=== PATIENT | male | born 1980 | race Caucasian/White ===

== ENCOUNTER 2016-12-08 14:46 | Emergency (ER) | payer BC ==
[~2016-12-08] VITALS: Ht 195.6 cm; Wt 106.6 kg
--- NOTE | ~2016-12-08 | CR243 ---
[facility] A Service of [facility] & [facility] RADIOLOGY TEXT RESULTS PATIENT: ARCHIE LOMELI JR LOCATION: [facility] : [birth year] UNIT #: [id number] AGE: [address]: Betty Phillips APRN SEX: M ORDER DR: [id number] [facility] [address] [place] [place], [place] [address] [id number] E MR#: [id number] Acc #: [id number] NAME: ARCHIE LOMELI JR : 1980 SEX: M STUDY DATE/TIME: 12/08/2016 15:33 UNIT: [facility] ROOM: STUDY DESCRIPTION: CR Thoracic Spine 3 Views Attending Physician: Betty Phillips A.P.R.N. Ordering Physician: Claudy Washington M.D. Primary Care Physician: Primary Care Physician No MEDICAL IMAGING REPORT This report is preliminary unless electronic signature is present EXAM Thoracic series 12/08/2016 INDICATION 36-year-old male with a history of trauma. Upper back pain on the right side today. Injury occurred after lifting a box. TECHNIQUE Three views of the thoracic spine. COMPARISON None. FINDINGS No acute fracture or malalignment. Mild degenerative change in the mid-thoracic levels. Cervicothoracic junction intact. IMPRESSION Mild degenerative change. Otherwise negative. Dictated by... Jose J Price M.D. THIS IS AN ELECTRONICALLY VERIFIED REPORT Jose J Price M.D. at 12/09/2016 9:25 PM ИРИНА/barbara TD: 12/09/2016 06:57 JOB #: [id number] MEDICAL IMAGING REPORT Page 1 of 1 COPY
== END 2016-12-08 16:55 | disposition home or self-care (01) ==
LOC: CED 14:46 → CFTX 14:46
DX: S23.3XXA Sprain of ligaments of thoracic spine, initial encounter (principal); Z88.8 Allergy status to other drugs, medicaments and biological substances; X50.0XXA Overexertion from strenuous movement or load, initial encounter
CPT/HCPCS: 72072; 96372; 99283; J1885